=== PATIENT | female | born 1955 | race Caucasian/White ===

== ENCOUNTER → 2017-10-04 | Outpatient (CLI) | payer MEDICARE ==
--- NOTE | 2017-10-04 11:37 | Diagnostic Imaging Report ---
PROCEDURE:X-RAY PARANASAL SINUSES, COMPLETE COMPARISON:None. INDICATIONS:ACUTE MAXILLARY SINUSITIS FINDINGS: The paranasal sinuses are clear. No fluid levels are identified. No expansile or destructive osseous lesions are seen. No evidence of fracture. CONCLUSION: No radiographic evidence of acute sinusitis. Dictated by: Soren Gaines M.D. on 10/04/2017 at 11:39 Electronically approved by: Soren Gaines M.D. on 10/04/2017 at 11:39
== END ==
LOC: RAD 10:27
PROVIDERS: ATTEND Family Medicine
DX: J01.00 Acute maxillary sinusitis, unspecified (principal)
CPT/HCPCS: 70220

== ENCOUNTER 2018-04-07 21:51 | Emergency (ER) | payer MEDICARE ==
[~2018-04-07] VITALS: Ht 162.6 cm; Wt 110.2 kg
--- OUTSIDE RECORDS SUMMARY | 2018-04-07 21:54 | XMS REPORT ---
Author Author [facility] Organization [facility] Address Unknown Phone Unavailable Care Team Providers Care Abnormal Psychology Teacher Name Role Phone Corona HAM Unavailable Unavailable Problems This patient has no known problems. Allergies, Adverse Reactions, Alerts This patient has no known allergies or adverse reactions. Medications This patient has no known medications. Results Test Description Test Time Test Comments Text Results Atomic Results Result Comments SINUSES (PARANASAL)MIN 3VIEWS [facility] [address] [address] Patient Name: JOSE MANUEL PLASCENCIA MR #: [id number] : 1955 Age/Sex: 62/F Req #: [id number] Adm Physician: Ordered by: COLLINS HAM MD Report #: [id number] Location: [facility] Room/Bed: Procedure: [id number] DX/SINUSES (PARANASAL)MIN 3VIEWS Exam Date: 10/04/17 Exam Time: 1120 REPORT STATUS: Signed PROCEDURE: X-RAY PARANASAL SINUSES, COMPLETE COMPARISON: None. INDICATIONS: ACUTE MAXILLARY SINUSITIS FINDINGS: The paranasal sinuses are clear. No fluid levels are identified. No expansile or destructive osseous lesions are seen. No evidence of fracture. CONCLUSION: No radiographic evidence of acute sinusitis. Dictated by: Nani Tirado M.D. on 10/04/2017 at 11:39 Electronically approved by: Nani Tirado M.D. on 10/04/2017 at 11:39 Dictated By: NANI TIRADO MD 1139 Transcribed By: MARINO on 10/04/17 1139 COPY TO: COLLINS HAM MD
== END 2018-04-07 23:30 | disposition home or self-care (01) ==
LOC: ER 21:51
DX: T88.7XXA Unspecified adverse effect of drug or medicament, initial encounter (principal); F31.9 Bipolar disorder, unspecified
CPT/HCPCS: 36415; 82948; 99282

== ENCOUNTER → 2018-12-05 | Outpatient (CLI) | payer MEDICARE ==
[~2018-12-05] MED LIST: ABILIFY5 MG PO; BENZTROPINE ME0.5 MG PO; BUPROPION HCL200 MG PO; LEVOTHYROXINE PO; LEXAPRO10 MG PO; PANTOPRAZOLE SO40 MG PO; PROPRANOLOL HCL10 MG PO; PROPRANOLOL HCL20 MG PO; WELLBUTRIN SR150 MG PO
--- NOTE | 2018-12-05 09:27 | Diagnostic Imaging Report ---
TECHNIQUE: Magnetic resonance imaging of the RIGHT HIP was performed WITHOUT injected contrast. HISTORY: Right hip pain, reticulocyte COMPARISON: None available. FINDINGS: Bone: No focal or infiltrative bone marrow replacing abnormality. No osteonecrosis or acute fracture. Femoroacetabular Joint: Acetabular labrum: Fraying of the labrum without discrete tear. Articular Cartilage: No focal defect. Degenerative arthrosis of the pubic symphysis. Muscle and tendons: Insertional tendinopathy of the gluteus minimus on the greater trochanter. The gluteus medius is intact. The iliopsoas intact. The hamstring origins are intact. Soft tissues: Otherwise unremarkable. IMPRESSION: No significant arthropathy of the right hip. 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 Signed by: Dr. Tian Saba M.D. on 12/05/2018 9:24 AM
--- NOTE | 2018-12-05 11:11 | Diagnostic Imaging Report ---
MRI of the Lumbar Spine WITHOUT Intravenous Contrast HISTORY: Radiculopathy, right hip pain COMPARISON: Right hip MRI of the same day. TECHNIQUE: Multi-planar and multi-sequence MR imaging of the lumbar spine was performed without administration of intravenous contrast material. FINDINGS: ALIGNMENT: There is normal lumbar lordosis. There is no spondylolisthesis. DISKS and BONES: The intervertebral disks are normal in signal and height. The bone marrow signal is within normal limits. The vertebral body heights are preserved. SPINAL CORD: The conus medullaris appears normal and terminates at the level of L1-2. The visualized portions of the spinal cord and cauda equina are unremarkable, with no signal abnormality. PARAVERTEBRAL SOFT TISSUES: Within normal limits. SIGNIFICANT FINDINGS BY LEVEL: T12/L1: No significant spinal canal or neural foraminal narrowing. L1/L2: No significant spinal canal or neural foraminal narrowing. L2/L3: No significant spinal canal or neural foraminal narrowing. L3/L4: No significant spinal canal or neural foraminal narrowing. L4/L5: Minimal facet hypertrophy and ligamentum flavum infolding. No substantial spinal canal or neuroforaminal narrowing. L5/S1: No significant spinal canal or neural foraminal narrowing. IMPRESSION: Normal lumbar spine alignment with no significant neural foraminal or spinal canal narrowing. Minimal facet arthropathy at L4-5. Signed by: Juanita Hong MD on 12/05/2018 11:08 AM
== END ==
LOC: MRI 07:12
PROVIDERS: ATTEND Family Medicine
DX: M54.16 Radiculopathy, lumbar region (principal); M25.551 Pain in right hip
CPT/HCPCS: 72148

== ENCOUNTER 2018-12-11 09:27 | Emergency (ER) | payer MEDICARE ==
[~2018-12-11] VITALS: Ht 162.6 cm; Wt 115.2 kg
--- NOTE | 2018-12-11 11:30 | Diagnostic Imaging Report ---
CT BRAIN WO HISTORY: Lightheaded, blurred vision COMPARISON: None. TECHNIQUE: Noncontrast axial scans were obtained from skull base to the vertex. Coronal and sagittal reconstructions obtained from the axial data. One or more of the following dose reduction techniques were used: Automated exposure control, adjustment of the mA and/or kV according to patient size, and/or utilization of iterative reconstruction technique. DISCUSSION: Scalp/Skull: Small nodular subcutaneous lesion in the left frontal scalp may be an inclusion cyst. Otherwise, unremarkable. Brain sulci: Appropriate for patient's age. Ventricles: Normal in size and configuration. No hydrocephalus. Extra-axial spaces: No masses or fluid collections. Minimal carotid siphon calcifications are present. Parenchyma: No abnormal densities. No mass, hemorrhage, or large vascular territory acute infarct. Dural sinuses: No abnormal densities. Sellar/Suprasellar region: Empty sella is present. Skull base: Intact. Incidental findings: Both ocular lenses are thinned. Mild left sphenoid sinus mucosal thickening is seen. IMPRESSION: No acute intracranial abnormalities. Signed by: Dr. Tee Chiang M.D. on 12/11/2018 11:27 AM
[2018-12-11 11:34] LABS: BASOPHILS # (AUTO) 0.1 (0.0-0.1); BASOPHILS % 1.1 % (0.0-1.0); EOSINOPHILS # (AUTO) 0.1 (0.0-0.4); EOSINOPHILS % 2.6 % (0.0-6.0); HEMATOCRIT 40.6 % (34.2-44.1); HEMOGLOBIN 12.6 g/dL (12.0-16.0); LYMPHOCYTES # (AUTO) 1.1 (1.0-3.2); MEAN CORPUSCULAR HEMOGLOBIN 30.4 pg (28-32); MEAN CORPUSCULAR VOLUME 97.8 fL (81-99); MONOCYTES # (AUTO) 0.4 (0.2-0.8); MONOCYTES % 7.4 % (4.4-11.3); NEUTROPHILS # (AUTO) 3.6 (2.1-6.9); NEUTROPHILS % 68.5 % (38.7-80.0); PLATELET COUNT 225 x10e3/uL (140-360); RED BLOOD COUNT 4.15 x10e6/uL (3.6-5.1); RED CELL DISTRIBUTION WIDTH 14.5 % (11.7-14.4)
[2018-12-11 11:58] LABS: ALANINE AMINOTRANSFERASE 19 IU/L (0-55); ALBUMIN 3.7 g/dL (3.5-5.0); ALBUMIN/GLOBULIN RATIO 0.9 (0.8-2.0); ALKALINE PHOSPHATASE 60 IU/L (40-150); ANION GAP 15.1 mmol/L (8-16); BLOOD UREA NITROGEN 13 mg/dL (7-26); BUN/CREATININE RATIO 11 (6-25); CARBON DIOXIDE 29 mmol/L (22-29); CHLORIDE 100 mmol/L (98-107); CREATINE KINASE 100 IU/L (29-168); CREATININE, SERUM 1.19 mg/dL (0.57-1.11); EST GLOMERULAR FILTRATION RATE 46 ML/MIN (60-); GLUCOSE 105 mg/dL (74-118); POTASSIUM 4.1 mmol/L (3.5-5.1); SODIUM 140 mmol/L (136-145)
[2018-12-11 12:05] LABS: BILIRUBIN,URINE NEGATIVE (NEGATIVE); CLARITY,URINE CLEAR (CLEAR); COLOR,URINE YELLOW (YELLOW); KETONES,URINE NEGATIVE (NEGATIVE); LEUKOCYTE ESTERASE ,URINE SMALL (NEGATIVE); NITRITE,URINE NEGATIVE (NEGATIVE); PROTEIN,URINE DIPSTICK NEGATIVE (NEGATIVE); URINE UROBILINOGEN 1 mg/dL (0.2 - 1)
[2018-12-11 12:29] LABS: BACTERIA,URINE MANY /HPF; EPITHELIAL CELLS,URINE MODERATE /LPF; RBC,URINE 0-5 /HPF (0-5)
[2018-12-31] MEDS ORDERED: PROPRANOLOL HCL10 MG PO (15:29)
[2018-12-31] MEDS ORDERED: LEXAPRO10 MG PO (15:31)
[2018-12-31] MEDS ORDERED: WELLBUTRIN SR150 MG PO (15:31)
[2019-01-05] MEDS ORDERED: BUPROPION HCL200 MG PO (10:02)
[2019-01-05] MEDS ORDERED: PROPRANOLOL HCL20 MG PO (10:02)
[2019-01-05] MEDS ORDERED: BENZTROPINE ME0.5 MG PO (10:04)
[2019-01-05] MEDS ORDERED: LEVOTHYROXINE PO (10:04)
[2019-01-05] MEDS ORDERED: PANTOPRAZOLE SO40 MG PO (10:05)
[2019-01-05] MEDS ORDERED: ABILIFY5 MG PO (10:06)
== END 2018-12-11 14:19 | disposition home or self-care (01) ==
LOC: ER 09:27
DX: H53.8 Other visual disturbances (principal); H54.3 Unqualified visual loss, both eyes; I10 Essential (primary) hypertension; N39.0 Urinary tract infection, site not specified; Z88.8 Allergy status to other drugs, medicaments and biological substances; K21.9 Gastro-esophageal reflux disease without esophagitis; F41.9 Anxiety disorder, unspecified
CPT/HCPCS: 36415; 70450; 80053; 81001; 82550; 82553; 84484; 85025; 93005; 99283

== ENCOUNTER → 2019-01-05 | Day surgery (SDC) | payer MEDICARE ==
[2018-12-31 16:18] LABS: INR 0.94; PROTHROMBIN TIME 13.1 seconds (11.9-14.5)
[~2019-01-05] MED LIST changes: +FENTANYL CITRATE/PF 100MCG/2 ML INJ ONE; +HYOSCYAMINE 0.125 MG TAB ONE; +KETAMINE HCL INJ 50 MG/ML 10 ML VIAL ONE; +MIDAZOLAM HCL 2 MG/2 ML VIAL ONE; +PROPOFOL IV EMULSION 10 MG/ML 50 ML VIAL ONE
[2019-01-05 14:30] VITALS: BP 111/68
--- NOTE | 2019-01-05 17:28 | Operative Report ---
DATE OF PROCEDURE: 01/05/2019 SURGEON: Les Velasquez MD PROCEDURE: EGD with esophageal dilatation and biopsies and a colonoscopy with polypectomy. INDICATIONS FOR EGD: Dysphagia. INDICATION FOR COLONOSCOPY: Colorectal cancer screening. MEDICATIONS: The patient was done under MAC. Please see Anesthesiologist's note. PROCEDURE IN DETAIL: With the patient in left lateral decubitus position, flexible fiberoptic Olympus gastroscope was introduced into the esophagus under direct visualization without any difficulty. There was some patchy erythema noted in distal esophagus. A mild stricture was noted at the GE junction that was dilated to size 52-Russian Siddiqi. The scope was then advanced with ease into the stomach traversing a small sliding hiatal hernia. Mucosa overlying the antrum and the body revealed some patchy erythema and low-grade edema and biopsies were obtained and sent to stain for H. pylori. Pylorus was of normal contour and shape and was intubated with ease and the scope was advanced all the way to the second portion of the duodenum. The scope was then withdrawn slowly. Mucosa overlying the proximal second portion and duodenal bulb appeared to be within normal limits. The scope was then withdrawn back into the stomach and retroflexed mucosa overlying the fundus and cardia appeared to be within normal limits. The scope was then straightened out and was subsequently withdrawn. The patient tolerated procedure well. IMPRESSION: 1. Mild distal esophagitis. 2. Esophageal stricture at GE junction dilated to size 52-Russian Siddiqi. 3. Small sliding hiatal hernia. 4. Gastritis, biopsied. Biopsies sent to stain for H. pylori. PLAN: Follow up histology. Continue Protonix 40 mg one p.o. q.a.m. a.c. PROCEDURE #2: The patient was then turned around after adequate lubrication of the anal canal. The flexible fiberoptic Olympus colonoscope was inserted into the rectum with ease and advanced all the way to the cecum. The scope was then withdrawn slowly. Mucosa overlying the cecum, ascending colon, transverse colon grossly appeared to be within normal limits. One polyp was snared from the descending colon. The rest of the descending, sigmoid, and rectum appeared to be within normal limits. The scope was then retroflexed into the distal rectum and small internal hemorrhoids were noted, none of which was actively bleeding. The scope was then straightened out. It was subsequently withdrawn. The patient tolerated procedure well. IMPRESSION: 1. Descending colon polyp snared. 2. Internal hemorrhoids, none actively bleeding. PLAN: Follow up histology. Initiate high-fiber, low-fat diet. Initiate high-fiber supplement. The patient might need a followup colonoscopy in 5 years. Les Velasquez MD [facility] [place][id number] cc: Anselmo Ferrer MD
== END | disposition home or self-care (01) ==
LOC: OR 08:40
PROVIDERS: ATTEND Internal Medicine Gastroenterology
DX: Z12.11 Encounter for screening for malignant neoplasm of colon (principal); D12.4 Benign neoplasm of descending colon; K29.70 Gastritis, unspecified, without bleeding; K22.2 Esophageal obstruction; K21.9 Gastro-esophageal reflux disease without esophagitis; K20.9 Esophagitis, unspecified; K44.9 Diaphragmatic hernia without obstruction or gangrene; K64.8 Other hemorrhoids; I10 Essential (primary) hypertension; J45.909 Unspecified asthma, uncomplicated; I20.8 Other forms of angina pectoris; F41.9 Anxiety disorder, unspecified; F31.9 Bipolar disorder, unspecified; Z88.1 Allergy status to other antibiotic agents; Z88.8 Allergy status to other drugs, medicaments and biological substances; Z01.812 Encounter for preprocedural laboratory examination; Z68.41 Body mass index [BMI] 40.0-44.9, adult; Z86.19 Personal history of other infectious and parasitic diseases
CPT/HCPCS: 36415; 43239; 43450; 45385; 85610; 85730; 88305; 88312; J2250; J2704; J3010; 45378

== ENCOUNTER 2019-06-14 08:36 | Emergency (ER) | payer MEDICARE ==
[~2019-06-14] VITALS: Ht 162.6 cm; Wt 115.2 kg
[~2019-06-14 08:36] MED LIST changes: -FENTANYL CITRATE/PF 100MCG/2 ML INJ ONE; -HYOSCYAMINE 0.125 MG TAB ONE; -KETAMINE HCL INJ 50 MG/ML 10 ML VIAL ONE; -MIDAZOLAM HCL 2 MG/2 ML VIAL ONE; -PROPOFOL IV EMULSION 10 MG/ML 50 ML VIAL ONE
[2019-06-14] MEDS ORDERED: METHYLPREDNISOLONE SOD SUCC 125 MG/2ML VIAL IV STA (08:42)
[2019-06-14] MEDS ORDERED: ALBUTEROL/IPRATROPIUM 3 ML NEB NEB ONE (08:45)
[2019-06-14] MEDS ORDERED: SODIUM CHLORIDE 0.9% 500ML 500 ML IV ONE (09:00)
[2019-06-14 09:28] LABS: BASOPHILS # (AUTO) 0.1 (0.0-0.1); BASOPHILS % 0.7 % (0.0-1.0); EOSINOPHILS # (AUTO) 0.3 (0.0-0.4); EOSINOPHILS % 3.9 % (0.0-6.0); HEMOGLOBIN 12.8 g/dL (12.0-16.0); LYMPHOCYTES # (AUTO) 0.7 (1.0-3.2); LYMPHOCYTES % 9.8 % (18.0-39.1); MEAN CORPUSCULAR HEMOGLOBIN 30.3 pg (28-32); MEAN CORPUSCULAR VOLUME 94.8 fL (81-99); MONOCYTES # (AUTO) 0.5 (0.2-0.8); MONOCYTES % 7.4 % (4.4-11.3); NEUTROPHILS # (AUTO) 5.4 (2.1-6.9); NEUTROPHILS % 77.8 % (38.7-80.0); PLATELET COUNT 254 x10e3/uL (140-360); RED BLOOD COUNT 4.22 x10e6/uL (3.6-5.1); RED CELL DISTRIBUTION WIDTH 14.7 % (11.7-14.4)
[2019-06-14 09:39] LABS: INR 0.98; PROTHROMBIN TIME 13.6 seconds (11.9-14.5)
[2019-06-14 09:40] LABS: PARTIAL THROMBOPLASTIN TIME 31.6 seconds (23.8-35.5)
[2019-06-14 09:50] LABS: ALBUMIN 3.3 g/dL (3.5-5.0); ALBUMIN/GLOBULIN RATIO 0.8 (0.8-2.0); ANION GAP 15.9 mmol/L (8-16); CALCIUM 8.6 mg/dL (8.4-10.2); CREATININE, SERUM 1.18 mg/dL (0.57-1.11); MAGNESIUM 1.7 MG/DL (1.3-2.1); POTASSIUM 3.9 mmol/L (3.5-5.1)
[2019-06-14 09:52] LABS: INFLUENZAE A&B ANTIGEN (RAPID) NEGATIVE (NEGATIVE); STREPTOCOCCUS GRP A ANTIGEN NEGATIVE (NEGATIVE)
[2019-06-14 09:53] LABS: B-TYPE NATRIURETIC PEPTIDE2 205.7 pg/mL (0-100)
[2019-06-14 09:56] LABS: CREATINE KINASE MB 0.5 ng/mL (0-5.0)
--- NOTE | 2019-06-14 10:58 | Diagnostic Imaging Report ---
Chest, 1 view, 06/14/2019. History: Cough, shortness of breath. Comparison: None available. Findings: The cardiac silhouette is within normal limits. Hazy bilateral perihilar and bibasilar patchy opacities are present. There are no acute osseous or soft tissue abnormalities. Impression: Bilateral pulmonary opacities may represent edema with atelectasis versus pneumonitis. Signed by: Omar Gaytan on 06/14/2019 10:55 AM
[2019-06-14] MEDS ORDERED: METHYLPREDNISOLONE SOD SUCC 125 MG/2ML VIAL ONE (12:49)
[2019-06-14] MEDS ORDERED: SODIUM CHLORIDE 0.9% 500ML 500 ML ONE (12:50)
--- NOTE | 2019-06-14 13:05 | Diagnostic Imaging Report ---
CT of the chest, with contrast, 06/14/2019. History: Shortness of breath. Comparison: Chest x-ray from earlier today. Technique: Multidetector CT scanning of the chest was performed from the level of the apices to the upper abdomen after intravenous administration of contrast. Coronal and sagittal multiplanar reformations were obtained. RADIATION DOSE: Total DLP: 694 mGy*cm Dose modulation, iterative reconstruction, and/or weight based adjustment of the mA/kV was utilized to reduce the radiation dose to as low as reasonably achievable. Discussion: Chest: The heart is mildly enlarged. The main pulmonary artery is dilated measuring 3 cm in diameter. The pulmonary artery branches are well-opacified without evidence of filling defect. The thoracic aorta is right-sided with typical branching pattern and is within normal limits for size. The thyroid is unremarkable. There is no evidence of axillary or mediastinal adenopathy. Bilateral patchy ground glass opacities are present. Subsegmental atelectasis is noted at the lung bases. There is no focal consolidation or effusion. Limited evaluation of the upper abdomen shows normal adrenal glands. Bones and soft tissues: No acute abnormality. Mild degenerative changes are present in the thoracic spine. IMPRESSION: Findings consistent with CHF with bibasilar atelectasis. Incidental note of right-sided aortic arch. Signed by: Omar Gaytan on 06/14/2019 1:02 PM
[2019-06-14] MEDS ORDERED: IOPAMIDOL 370 MG/ML 200 ML INFUS..BTL INJ ONE (14:17)
[2019-06-14] MEDS ORDERED: SODIUM CHLORIDE 0.9% 50ML 50 ML ONE (14:17)
== END 2019-06-14 17:02 | disposition home or self-care (01) ==
LOC: ER 08:58
DX: J20.9 Acute bronchitis, unspecified (principal); Z88.2 Allergy status to sulfonamides; Z88.8 Allergy status to other drugs, medicaments and biological substances; G20 Parkinson's disease; I10 Essential (primary) hypertension; Z82.49 Family history of ischemic heart disease and other diseases of the circulatory system
CPT/HCPCS: 36415; 71045; 71260; 80053; 82550; 82553; 83518; 83605; 83735; 83880; 84484; 85025; 85379; 85610; 85730; 87040; 87070; 87400; 93005; 94640; 99284; J2930; J7040; Q9967

== ENCOUNTER → 2020-07-03 | Day surgery (SDC) | payer MEDICARE ==
[~2020-07-03] MED LIST changes: +FENTANYL CITRATE/PF 100MCG/2 ML INJ ONE; +HYGROTON25 MG PO; +MIDAZOLAM HCL 2 MG/2 ML VIAL ONE; +PROPOFOL IV EMULSION 10 MG/ML 20 ML VIAL ONE; +SPIRONOLACTONE25 MG PO; +SUCRALFATE1 GM PO; +TYLENOL EXTRA500 MG PO
[2020-07-03 15:25] VITALS: BP 107/65
== END | disposition home or self-care (01) ==
LOC: ENDO 10:07
PROVIDERS: ATTEND Internal Medicine Gastroenterology
DX: K22.2 Esophageal obstruction (principal); K29.50 Unspecified chronic gastritis without bleeding; K29.60 Other gastritis without bleeding; K20.90 Esophagitis, unspecified without bleeding; K21.9 Gastro-esophageal reflux disease without esophagitis; K28.9 Gastrojejunal ulcer, unspecified as acute or chronic, without hemorrhage or perforation; K44.9 Diaphragmatic hernia without obstruction or gangrene; Z86.010 Personal history of colon polyps; H91.90 Unspecified hearing loss, unspecified ear; E66.01 Morbid (severe) obesity due to excess calories; I12.9 Hypertensive chronic kidney disease with stage 1 through stage 4 chronic kidney disease, or unspecified chronic kidney disease; N18.9 Chronic kidney disease, unspecified; F32.9 Major depressive disorder, single episode, unspecified; Z01.810 Encounter for preprocedural cardiovascular examination; Z01.812 Encounter for preprocedural laboratory examination; Z20.822 Contact with and (suspected) exposure to COVID-19; Z68.41 Body mass index [BMI] 40.0-44.9, adult; Z86.19 Personal history of other infectious and parasitic diseases
CPT/HCPCS: 43239; 43450; 93005; J2250; J2704; J3010; U0002

== ENCOUNTER → 2020-09-18 | Outpatient (CLI) | payer MEDICARE ==
[~2020-09-18] MED LIST changes: +CEPHALEXIN500 MG PO; -FENTANYL CITRATE/PF 100MCG/2 ML INJ ONE; +IOPAMIDOL 370 MG/ML 200 ML INFUS..BTL INJ ONE; -MIDAZOLAM HCL 2 MG/2 ML VIAL ONE; +PREDNISONE20 MG PO; -PROPOFOL IV EMULSION 10 MG/ML 20 ML VIAL ONE; +SODIUM CHLORIDE 0.9% 500ML 500 ML ONE; +SODIUM CHLORIDE 0.9% 50ML 50 ML ONE; +VENTOLIN HFA18 GM INH
[2020-09-18 14:47] LABS: CREATININE, SERUM 1.25 mg/dL (0.57-1.11)
== END ==
LOC: CT 13:55
PROVIDERS: ATTEND Family Medicine
DX: R09.02 Hypoxemia (principal)
CPT/HCPCS: 36415; 71260; 82565; 84520; 96360; J7040; Q9967

== ENCOUNTER 2020-09-19 16:23 | Emergency (ER) | payer MEDICARE ==
[~2020-09-19] VITALS: Ht 162.6 cm; Wt 115.2 kg
[~2020-09-19 16:23] MED LIST changes: -CEPHALEXIN500 MG PO; -IOPAMIDOL 370 MG/ML 200 ML INFUS..BTL INJ ONE; -PREDNISONE20 MG PO; -SODIUM CHLORIDE 0.9% 500ML 500 ML ONE; -SODIUM CHLORIDE 0.9% 50ML 50 ML ONE; -VENTOLIN HFA18 GM INH
[2020-09-19 17:10] LABS: BASOPHILS # (AUTO) 0.1 (0.0-0.1); BASOPHILS % 0.9 % (0.0-1.0); EOSINOPHILS # (AUTO) 0.2 (0.0-0.4); EOSINOPHILS % 3.2 % (0.0-6.0); HEMATOCRIT 40.1 % (34.2-44.1); HEMOGLOBIN 13.2 g/dL (12.0-16.0); LYMPHOCYTES # (AUTO) 1.2 (1.0-3.2); LYMPHOCYTES % 16.7 % (18.0-39.1); MEAN CORPUSCULAR HGB CONC 32.9 g/dL (31-35); MEAN CORPUSCULAR VOLUME 94.1 fL (81-99); MONOCYTES # (AUTO) 0.7 (0.2-0.8); MONOCYTES % 9.8 % (4.4-11.3); NEUTROPHILS # (AUTO) 5.1 (2.1-6.9); PLATELET COUNT 201 x10e3/uL (140-360); RED BLOOD COUNT 4.26 x10e6/uL (3.6-5.1); RED CELL DISTRIBUTION WIDTH 14.1 % (11.7-14.4)
[2020-09-19 17:16] LABS: COLOR,URINE YELLOW (YELLOW)
[2020-09-19 17:17] LABS: CLARITY,URINE SL CLOUDY (CLEAR); KETONES,URINE TRACE (NEGATIVE); LEUKOCYTE ESTERASE ,URINE MODERATE (NEGATIVE); NITRITE,URINE NEGATIVE (NEGATIVE); PROTEIN,URINE DIPSTICK NEGATIVE (NEGATIVE); URINE UROBILINOGEN 0.2 mg/dL (0.2 - 1)
[2020-09-19 17:30] LABS: BACTERIA,URINE FEW /HPF; WBC,URINE (MAN) 0-5 /HPF (0-5)
[2020-09-19 17:31] LABS: EPITHELIAL CELLS,URINE RARE /LPF
[2020-09-19 17:35] LABS: ANION GAP 17.3 mmol/L (8-16); CREATININE, SERUM 1.44 mg/dL (0.57-1.11); POTASSIUM 3.3 mmol/L (3.5-5.1)
[2020-09-19 17:41] LABS: CREATINE KINASE MB 0.8 ng/mL (0-5.0)
[2020-09-19] MEDS ORDERED: PREDNISONE20 MG PO (19:25)
[2020-09-19] MEDS ORDERED: CEPHALEXIN500 MG PO (19:25)
[2020-09-19] MEDS ORDERED: VENTOLIN HFA18 GM INH (19:25)
== END 2020-09-19 20:10 | disposition home or self-care (01) ==
LOC: ER 17:06
DX: R06.00 Dyspnea, unspecified (principal); I10 Essential (primary) hypertension; F41.9 Anxiety disorder, unspecified; F31.9 Bipolar disorder, unspecified; M54.9 Dorsalgia, unspecified; G89.29 Other chronic pain
CPT/HCPCS: 36415; 71045; 80053; 81001; 82550; 82553; 83880; 84484; 85025; 93005; 99284

== ENCOUNTER → 2020-10-02 | Outpatient (CLI) | payer MEDICARE ==
[~2020-10-02] MED LIST changes: +CEPHALEXIN500 MG PO; +PREDNISONE20 MG PO; +VENTOLIN HFA18 GM INH
== END ==
LOC: RAD 12:59
PROVIDERS: ATTEND Family Medicine
DX: R42 Dizziness and giddiness (principal)
CPT/HCPCS: 93306

== ENCOUNTER → 2021-08-03 | Outpatient (CLI) | payer OTHER | LOC: MAMMO 07:57 | PROVIDERS: ATTEND Family Medicine | DX: Z12.31 Encounter for screening mammogram for malignant neoplasm of breast (principal) | CPT/HCPCS: 77067 ==

== ENCOUNTER → 2022-02-16 | Outpatient (CLI) | payer OTHER ==
[~2022-02-16] MED LIST changes: +IOPAMIDOL 370 MG/ML 100 ML INFUS..BTL INJ ONE
[2022-02-16 16:48] LABS: CREATININE, SERUM 1.31 mg/dL (0.57-1.11)
== END ==
LOC: CT 15:53
PROVIDERS: ATTEND Nurse Practitioner Family
DX: Z86.711 Personal history of pulmonary embolism (principal)
CPT/HCPCS: 36415; 71260; 82565; 84520; Q9967

== ENCOUNTER → 2023-09-15 | Day surgery (SDC) | payer OTHER ==
[~2023-09-15] MED LIST changes: +ATORVASTATIN CA20 MG PO; +AZITHROMYCIN250 MG PO; +BENZONATATE200 MG PO; +BUPIVACAINE 0.25% 30ML SDV ONE; +CARBIDOPA-LEVO1 EACH PO; +CEPHALEXIN250 MG PO; +DEXAMETHASONE SOD PHOS INJ 4 MG/ML SDV ONE; +DOXYCYCLINE HY100 MG PO; +FARXIGA10 MG PO; +FENTANYL CITRATE/PF 100MCG/2 ML INJ ONE; +GLYCOPYRROLATE INJ 0.2 MG/ML VIAL ONE; +HYDROCODONE/APAP 7.5MG-325MG 1 EA TAB ONE; -IOPAMIDOL 370 MG/ML 100 ML INFUS..BTL INJ ONE; +LIDOCAINE 1% W/EPINEPHRINE 20 ML VIAL ONE; +LIDOCAINE HCL 2% LOCAL INJ 5 ML SDV VIAL INJ ONE; +LOSARTAN POTASS25 MG PO; +MEDROL4 M2 PO; +MIDAZOLAM HCL 2 MG/2 ML VIAL ONE; +MUCINEX DM ER1 EACH PO; +NEOSTIGMINE 1 MG/ML 10ML VIAL ONE; +NEURONTIN400 MG PO; +ONDANSETRON HCL INJ 2MG/ML 2ML 2 MG/ML VIAL ONE; +PROPOFOL IV EMULSION 10 MG/ML 20 ML VIAL ONE; +ROCURONIUM BROMIDE 10 MG/ML 5ML VIAL IV ONE; +RYBELSUS7 MG PO; +SEVOFLURANE INHAL SOLN 250 ML PEN BTL ONE; +SUCCINYLCHOLINE CHLORIDE 20 MG/ML 10ML VIAL ONE
[2023-09-15] MEDS: LACTATED RINGER'S 1,000 ML ONE (09:02)
[2023-09-15] MEDS: HYDROCODONE/APAP 7.5MG-325MG 1 EA TAB PO ONE (14:15)
[2023-09-15 14:30] VITALS: BP 145/65; PULSE 74; RESP 16; O2SAT 94
== END | disposition home or self-care (01) ==
LOC: OR 08:30
PROVIDERS: ATTEND Surgery
DX: M79.5 Residual foreign body in soft tissue (principal); L72.0 Epidermal cyst; E11.22 Type 2 diabetes mellitus with diabetic chronic kidney disease; I12.9 Hypertensive chronic kidney disease with stage 1 through stage 4 chronic kidney disease, or unspecified chronic kidney disease; N18.2 Chronic kidney disease, stage 2 (mild); D64.9 Anemia, unspecified; E78.5 Hyperlipidemia, unspecified; E03.9 Hypothyroidism, unspecified; R05.9 Cough, unspecified; M06.9 Rheumatoid arthritis, unspecified; F31.9 Bipolar disorder, unspecified; F41.9 Anxiety disorder, unspecified; Z88.1 Allergy status to other antibiotic agents; Z88.2 Allergy status to sulfonamides; Z88.8 Allergy status to other drugs, medicaments and biological substances; Z79.85 Long-term (current) use of injectable non-insulin antidiabetic drugs; Z79.899 Other long term (current) drug therapy; Z86.19 Personal history of other infectious and parasitic diseases
CPT/HCPCS: 27372; 88304; J0330; J1100; J2001; J2250; J2405; J2704; J2710; J3010; J7121

== ENCOUNTER → 2024-02-26 | Outpatient (REF) | payer OTHER ==
[~2024-02-26] MED LIST changes: -BUPIVACAINE 0.25% 30ML SDV ONE; -DEXAMETHASONE SOD PHOS INJ 4 MG/ML SDV ONE; -FENTANYL CITRATE/PF 100MCG/2 ML INJ ONE; -GLYCOPYRROLATE INJ 0.2 MG/ML VIAL ONE; -HYDROCODONE/APAP 7.5MG-325MG 1 EA TAB ONE; -LIDOCAINE 1% W/EPINEPHRINE 20 ML VIAL ONE; -LIDOCAINE HCL 2% LOCAL INJ 5 ML SDV VIAL INJ ONE; -MIDAZOLAM HCL 2 MG/2 ML VIAL ONE; -NEOSTIGMINE 1 MG/ML 10ML VIAL ONE; -ONDANSETRON HCL INJ 2MG/ML 2ML 2 MG/ML VIAL ONE; -PROPOFOL IV EMULSION 10 MG/ML 20 ML VIAL ONE; -ROCURONIUM BROMIDE 10 MG/ML 5ML VIAL IV ONE; -SEVOFLURANE INHAL SOLN 250 ML PEN BTL ONE; -SUCCINYLCHOLINE CHLORIDE 20 MG/ML 10ML VIAL ONE
== END ==
LOC: DX 12:05
PROVIDERS: ATTEND Family Medicine
DX: Z13.820 Encounter for screening for osteoporosis (principal); Z87.81 Personal history of (healed) traumatic fracture
CPT/HCPCS: 77080

== ENCOUNTER → 2024-10-14 | Outpatient (REF) | payer MEDICARE ==
[~2024-10-14] MED LIST changes: +CEFDINIR300 MG PO
== END ==
LOC: MAMMO 08:02
PROVIDERS: ATTEND Family Medicine
DX: Z12.31 Encounter for screening mammogram for malignant neoplasm of breast (principal)
CPT/HCPCS: 77067

== ENCOUNTER 2024-12-15 19:47 | Emergency (ER) | payer MEDICARE ==
[~2024-12-15] VITALS: Ht 162.6 cm; Wt 115.7 kg
[2024-12-15 20:38] LABS: CORONAVIRUS COVID-19 AG POSITIVE (NEGATIVE)
[2024-12-15 21:25] VITALS: PULSE 91; RESP 18; TEMP 98.9; O2SAT 98
== END 2024-12-15 21:27 | disposition home or self-care (01) ==
LOC: ER 21:18
DX: R05.9 Cough, unspecified (principal); U07.1 COVID-19; R09.89 Other specified symptoms and signs involving the circulatory and respiratory systems; I12.9 Hypertensive chronic kidney disease with stage 1 through stage 4 chronic kidney disease, or unspecified chronic kidney disease; E11.22 Type 2 diabetes mellitus with diabetic chronic kidney disease; N18.30 Chronic kidney disease, stage 3 unspecified; E78.5 Hyperlipidemia, unspecified; F31.9 Bipolar disorder, unspecified
CPT/HCPCS: 71045; 83518; 87070; 99283